=== PATIENT | male | born 2000 | race Two or more races ===

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

== ENCOUNTER 2023-04-09 04:26 | Emergency (ER) | payer OTHER ==
[~2023-04-09] VITALS: Ht 177.8 cm; Wt 95.3 kg
[~2023-04-09 04:26] MED LIST: AMOX-430 PO; HYDR-3972 PO; ONDA4TAB5 PO
[2023-04-09] MEDS ORDERED: IBUPROFEN 600 MG TABLET PO ONE (05:30)
[2023-04-09] MEDS ORDERED: CYCLOBENZAPRINE 10 MG TABLET PO ONE (05:30)
[2023-04-09] MEDS ORDERED: IBUPROFEN 600 MG TABLET ONE (05:32)
[2023-04-09] MEDS ORDERED: CYCLOBENZAPRINE 10 MG TABLET ONE (05:32)
[2023-04-09] MEDS ORDERED: CYCL5TAB PO (05:36)
[2023-04-09 06:24] VITALS: BP 133/78; TEMP 97.7; O2SAT 98
== END 2023-04-09 06:24 | disposition home or self-care (01) ==
LOC: ER 04:29
DX: M79.602 Pain in left arm (principal); M54.6 Pain in thoracic spine; J45.909 Unspecified asthma, uncomplicated; Z90.89 Acquired absence of other organs; V89.2XXA Person injured in unspecified motor-vehicle accident, traffic, initial encounter; Y93.89 Activity, other specified; Y92.89 Other specified places as the place of occurrence of the external cause; Y99.8 Other external cause status

== ENCOUNTER 2023-07-18 12:37 | Emergency (ER) | payer OTHER ==
[~2023-07-18] VITALS: Ht 172.7 cm; Wt 104.3 kg
[~2023-07-18 12:37] MED LIST changes: +CYCL5TAB PO
[2023-07-18] MEDS ORDERED: PRED50TA PO (13:19)
[2023-07-18] MEDS ORDERED: ALBU8.5H8 INH (13:19)
[2023-07-18 13:28] VITALS: BP 128/78; TEMP 98.2; O2SAT 96
== END 2023-07-18 13:29 | disposition home or self-care (01) ==
LOC: ER 12:56
DX: J45.901 Unspecified asthma with (acute) exacerbation (principal)